=== PATIENT | male | born 1955 | race Caucasian/White ===

== ENCOUNTER → 2018-06-07 | Outpatient (CLI) | payer OTHER ==
[~2018-06-07] MED LIST: HYDR-3240 PO; MULT-658 PO; ROYAL JELLY PO; [UNRECOGNIZED DRUG - OTHER] PO; flexeril PO; garlic PO; hyaluronic acid PO; krill oil PO
== END | disposition home or self-care (01) ==
LOC: STAR 10:26
PROVIDERS: ATTEND Orthopaedic Surgery
DX: Z01.818 Encounter for other preprocedural examination (principal); M25.561 Pain in right knee
CPT/HCPCS: 93005

== ENCOUNTER 2018-06-14 12:21 | Day surgery (SDC) | payer OTHER ==
[~2018-06-14] VITALS: Ht 180.3 cm; Wt 82.0 kg
[2018-06-14] MEDS ORDERED: LACTATED RINGERS 1,000 ML IV SCH (12:49)
[2018-06-14 12:53] VITALS: BP 123/85
[2018-06-14] MEDS ORDERED: OxyconTIN ER 10 MG TAB.ER PO ONE (13:00)
[2018-06-14] MEDS ORDERED: DIAZEPAM 5 MG TABLET PO ONE (13:00)
[2018-06-14] MEDS ORDERED: GABAPENTIN 300 MG CAPSULE PO ONE (13:00)
[2018-06-14] MEDS ORDERED: ACETAMINOPHEN 500 MG TABLET PO ONE (13:00)
[2018-06-14] MEDS ORDERED: ONDANSETRON ODT 8 MG PO ONE (13:00)
[2018-06-14] MEDS ORDERED: MIDAZOLAM 1 MG/ML, 2ML ONE (13:50)
[2018-06-14] MEDS ORDERED: FENTANYL PF 250 MCG/5ML ONE (13:50)
[2018-06-14] MEDS ORDERED: BUPIVACAINE/PF-EPI 0.5% 1:200K ONE (14:04)
[2018-06-14] MEDS ORDERED: LIDOCAINE 1%-EPI 1:100K, 30ML ONE (14:04)
[2018-06-14] MEDS ORDERED: LIDOCAINE-MPF 2% ,5ML ONE (14:17)
[2018-06-14] MEDS ORDERED: HYDROcodone/APAP 5/325 TABLET PO PRN (14:30)
[2018-06-14] MEDS ORDERED: LIDOCAINE 1%-EPI 1:100K, 30ML INFIL ONE (14:42)
[2018-06-14] MEDS ORDERED: BUPIVACAINE/PF-EPI 0.5% 1:200K INFIL ONE (14:43)
[2018-06-14] MEDS ORDERED: CEFAZOLIN 1,000 MG ONE (14:49)
[2018-06-14] MEDS ORDERED: PROPOFOL 10 MG/ML, 20ML ONE (14:49)
[2018-06-14] MEDS ORDERED: DEXAMETHASONE 4 MG/ML, 1ML ONE (14:49)
[2018-06-14] MEDS ORDERED: ONDANSETRON 2MG/ML, 2ML ONE (14:49)
[2018-06-14] MEDS ORDERED: MIDAZOLAM 1 MG/ML, 2ML IV PRN (15:00)
[2018-06-14] MEDS ORDERED: hydrALAzine 20 MG/ML, 1ML IV PRN (15:00)
[2018-06-14] MEDS ORDERED: ONDANSETRON 2MG/ML, 2ML IV PRN (15:00)
[2018-06-14] MEDS ORDERED: MEPERIDINE/PF 25MG/0.5ML IVPush PRN (15:00)
[2018-06-14] MEDS ORDERED: ALBUTEROL/IPRATROPIUM 2.5MG/0.5MG, 3 ML NPPB PRN (15:00)
[2018-06-14] MEDS ORDERED: PROMETHAZINE 25 MG/ML, 1ML IV PRN (15:00)
[2018-06-14] MEDS ORDERED: OXYcodone 5 MG/5 ML ORAL.SOL UDC PO PRN (15:00)
[2018-06-14] MEDS ORDERED: LABETALOL 5MG/ML, 20ML IV PRN (15:00)
[2018-06-14] MEDS ORDERED: FENTANYL PF 100 MCG/2ML ONE (15:12)
[2018-06-14] MEDS ORDERED: HYDROmorphone 2 MG/ML, 1ML ONE (15:12)
[2018-06-14] MEDS: HYDROmorphone 2 MG/ML, 1ML IVPush PRN ×2 (15:16→15:27)
[2018-06-14] MEDS: FENTANYL PF 100 MCG/2ML IV PRN ×2 (15:17→15:27)
[2018-06-14] MEDS ORDERED: OXYcodone 5 MG/5 ML ORAL.SOL UDC ONE (15:44)
== END 2018-06-14 17:35 | disposition home or self-care (01) ==
LOC: OUT 12:21
PROVIDERS: ATTEND Orthopaedic Surgery
DX: S83.231A Complex tear of medial meniscus, current injury, right knee, initial encounter (principal); S83.281A Other tear of lateral meniscus, current injury, right knee, initial encounter; M67.51 Plica syndrome, right knee; K21.9 Gastro-esophageal reflux disease without esophagitis; X58.XXXA Exposure to other specified factors, initial encounter; Y93.89 Activity, other specified; Y92.89 Other specified places as the place of occurrence of the external cause; Y99.8 Other external cause status; Z88.1 Allergy status to other antibiotic agents; Z87.891 Personal history of nicotine dependence; Z72.89 Other problems related to lifestyle
CPT/HCPCS: 29880; J0690; J1100; J1170; J2250; J2405; J2704; J3010; J3490; J7120; Q0162